=== PATIENT | female | born 1990 | race African-American/Black ===

== ENCOUNTER 2018-05-24 08:02 | Emergency (ER) | payer MEDICAID ==
[~2018-05-24] VITALS: Ht 165.1 cm; Wt 86.4 kg
[~2018-05-24 08:02] MED LIST: ALBU8.5H8 IH
[2018-05-24] MEDS ORDERED: ALBUTEROL SULFATE HFA 90 MCG/PUFF 8 GM INHALER IH ONE (08:30)
[2018-05-24] MEDS ORDERED: 0.9% SODIUM CHLORIDE 5 ML NEB SOLUTION NEB ONE (08:43)
[2018-05-24] MEDS ORDERED: ALBUTEROL SULFATE 2.5 MG/0.5 ML NEB SOLUTION NEB ONE (08:45)
[2018-05-24] MEDS ORDERED: IPRATROPIUM BROMIDE 0.5 MG/2.5 ML NEB SOLUTION NEB ONE (08:45)
[2018-05-24 09:58] VITALS: BP 118/74
== END 2018-05-24 10:07 | disposition home or self-care (01) ==
LOC: EMS 08:03
DX: J45.901 Unspecified asthma with (acute) exacerbation (principal)
CPT/HCPCS: 94640; 99283; J7613; J3535

== ENCOUNTER 2018-07-04 20:57 | Emergency (ER) | payer MEDICAID ==
[~2018-07-04] VITALS: Ht 160 cm; Wt 86.4 kg
[2018-07-04] MEDS ORDERED: ALBUTEROL SULFATE 5 MG/ML 20 ML NEB SOLN [BULK] NEB ONE (22:30)
[2018-07-04] MEDS ORDERED: IPRATROPIUM BROMIDE 0.5 MG/2.5 ML NEB SOLUTION NEB ONE (22:30)
[2018-07-04] MEDS ORDERED: PredniSONE 20 MG TABLET PO ONE (22:30)
[2018-07-04] MEDS ORDERED: 0.9% SODIUM CHLORIDE 15 ML NEB SOLUTION NEB ONE (22:37)
[2018-07-04 23:49] VITALS: BP 143/54
== END 2018-07-04 23:50 | disposition home or self-care (01) ==
LOC: EMS 20:58
DX: J45.901 Unspecified asthma with (acute) exacerbation (principal)
CPT/HCPCS: 94644; 99285; J7512; J7611